=== PATIENT | female | born 1980 | race American Indian/Alaskan Native ===

== ENCOUNTER 2020-03-27 09:29 | Outpatient (CLI) | payer BC ==
--- NOTE | 2020-03-27 10:16 | Mammography Report ---
DIGITAL SCREENING MAMMOGRAM WITH CAD, 03/27/2020 CLINICAL INFORMATION / INDICATION: Routine screening mammography. SCREENING MAMMOGRAM TECHNIQUE: Digital bilateral 2D mammography was obtained in the craniocaudal and mediolateral obliqu e projections. This examination was interpreted with the benefit of Computer-Aided Detection analysis . COMPARISON: 03/23/2019 FINDINGS: Breast Density: The breasts are almost entirely fatty. No dominant mass, suspicious calcifications, or architectural distortion in either breast. Benign-appearing calcifications are present within both breasts. IMPRESSION: No mammographic evidence of malignancy. Follow up recommendation: Routine yearly BI-RADS Category 2: Benign. A "normal" or negative report should not discourage follow up or biopsy of a clinically significant f inding. A written summary of these findings will be mailed to the patient. The patient will be entered into a mammography reporting system which will generate a reminder letter for the patient's next appointmen t at the appropriate interval. The [employer] recommends yearly mammograms starting at age 40 and continuing as l eligio as a woman is in good health. Breast MRI is recommended for women with an approximate 20-25% or greater lifetime risk of breast cancer, including women with a strong family history of breast or ova stefan cancer or who have been treated for Hodgkin's disease. Signer Name: Merirll Vargas MD Signed: 03/27/2020 10:12 AM Workstation Name: [employer]
== END 2020-03-27 09:30 | disposition home or self-care (01) ==
LOC: SPVWC 09:29
PROVIDERS: ATTEND Obstetrics & Gynecology
DX: Z12.31 Encounter for screening mammogram for malignant neoplasm of breast (principal)
CPT/HCPCS: 77067

== ENCOUNTER 2020-06-10 08:23 | Day surgery (SDC) | payer BC ==
[2020-06-05 14:06] LABS: Hematocrit 33.9 % (30.3-42.9); Hemoglobin 10.9 gm/dl (10.1-14.3); Mean Corpuscular HGB Conc 32 % (30-34); Mean Corpuscular Volume 77 fl (79-97); Platelet Count 310 K/mm3 (140-440); Red Blood Count 4.41 M/mm3 (3.65-5.03); Red Cell Distribution Width 16.2 % (13.2-15.2)
--- NOTE | 2020-06-09 15:47 | History and Physical Report ---
History of Present Illness Date of examination: 06/05/20 Chief complaint: Menorrhagia and fibroids History of present illness: Patient presents for preop for hysteroscopy D&C to evaluate menorrhagia, she again declined in-office EMB d/t pain. Menstrual History: LMP (date): 05/08/2020 LMP - Character: normal LMP - Reliable: definite Menarche: 10 Menses interval: 28 days Menstrual flow: 4-7 days On BCP's at conception: none Date of positive (+) home preg. test: 06/11/2013 Current Method of Contraception: None Past History : 3 Term Births: 2 Premature Births: 0 Living Children: 2 Para: 2 Mult. Births: 0 Prev : 2 Aborta: 1 Elect. Ab: 0 Spont. 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 of genital herpes: no Partner hx. of genital herpes: no Hx of STD: None Active Medications: BLACK ELDERBERRY(LOW-FLOWER) CAPSULE (BLACK ELDERBERRY(LOW-FLOWER) CAPS) IBUPROFEN 800 MG ORAL TABLET (IBUPROFEN) 1 po q6 hr prn pain ALBUTEROL SULFATE (2.5 MG/3ML) 0.083% INHALATION NEBULIZATION SOLUTION (ALBUTEROL SULFATE) Current Allergies: PCN (Critical) ASPIRIN (Critical) * SHELLFISH (Critical) Past Medical History: Reviewed history from 03/12/2019 and no changes required: Asthma Pelvic adhesive disease Endometriosis h/o carpal tunnel (B) with ADHD Past Surgical History: Reviewed history from 02/21/2017 and no changes required: positive; LSC- ovarian drilling uterine polyp removal breast reduction x 2 Tubal Ligation Family History Summary: Reviewed history Last on 03/10/2020 and no changes required:06/09/2020 Mother - Has Family History of Diabetes - mother, mat aunts, father all t2dm - Entered On: 10/06/2017 Other Family Member - Has No Family History of Uterine Cancer - Entered On: 03/06/2017 Other Family Member - Has No Family History of Small Bowel Cancer - Entered On: 03/06/2017 Other Family Member - Has No Family History of Stomach Cancer - Entered On: 03/06/2017 Other Family Member - Has No Family History of Pancreatic Cancer - Entered On: 03/06/2017 Other Family Member - Has No Family History of Ovarvian Cancer - Entered On: 03/06/2017 Other Family Member - Has No Family History of Kidney/Urinary Tract Cancer - Entered On: 03/06/2017 Other Family Member - Has No Family History of DVT/PE on OCP - Entered On: 03/06/2017 Other Family Member - Has No Family History of Colon Cancer - Entered On: 03/06/2017 Other Family Member - Has No Family History of Brain Cancer - Entered On: 03/06/2017 Other Family Member - Has No Family History of Breast Cancer - Entered On: 03/06/2017 Other Family Member - Has No Family History of Biliary Tract Cancer - Entered On: 03/06/2017 General Comments - FH: No Family History of Breast Cancer No Family History of Colon Cancer No Family History of Ovarvian Cancer No Family History of DVT/PE on OCP Family History of Diabetes Family History of Hypertension Social History: Reviewed history from 03/12/2019 and no changes required: Patient is no etoh, no illicit drug use, no tobacco use Patient is single Risk Factors: Smoked Tobacco Use: Never smoker Smokeless Tobacco Use: Never Passive smoke exposure: no Drug use: no HIV high-risk behavior: no Alcohol use: yes Exercise: yes Times per week: 3 Type of Exercise: walking Seatbelt use: 100 % Previous Tobacco Use: Signed On 03/10/2020 Smoked Tobacco Use: Never smoker Smokeless Tobacco Use: Never Counseled to quit/cut down: yes Passive smoke exposure: no Drug use: no HIV high-risk behavior: no Caffeine use: 0 drinks per day Previous Alcohol Use: Signed On 03/10/2020 Alcohol use: yes Type: occ Drinks per day: social Exercise: yes Times per week: 3 Type of Exercise: 3 Seatbelt use: 100 % Sun Exposure: occasionally Dietary Counseling: pn yes Mammogram History: Date of Last Mammogram: 03/23/2019 PAP Smear History: Date of Last PAP Smear: 03/12/2019 Review of Systems General Denies fever, chills, sweats, anorexia, fatigue, weakness, malaise, weight loss and sleep disorder. Complains of menorrhagia. Denies vaginal discharge, incontinence, dysuria, hematuria, urinary frequency, amenorrhea, abnormal vaginal bleeding, pelvic pain, genital sores, decreased libido, painful periods, painful sex, urinary urgency, hot flashes, vaginal dryness, vaginal itching and vaginal odor. CV Denies chest pains, palpitations, syncope, dyspnea on exertion, orthopnea, PND and peripheral edema. Resp Denies cough, dyspnea at rest, excessive sputum, hemoptysis, wheezing and pleurisy. GI Denies nausea, vomiting, diarrhea, constipation, change in bowel habits, abdominal pain, melena, hematochezia, jaundice, gas/bloating, indigestion/heartburn, dysphagia and odynophagia. Endo Denies cold intolerance, heat intolerance, polydipsia, polyphagia, polyuria and unusual weight change. Breast Denies left breast lump, right breast lump, nipple discharge, bloody discharge from nipple, breast pain, abnormal mammogram and breast enlargement. MS Denies back pain, joint pain, joint swelling, muscle cramps, muscle weakness, stiffness, arthritis, sciatica, restless legs, leg pain at night and leg pain with exertion. Derm Denies rash, itching, dryness and suspicious lesions. Neuro Denies paralysis, paresthesias, headache, seizures, tremors, vertigo, transient blindness, frequent falls, frequent headaches and difficulty walking. Psych Denies depression, anxiety, irritability and mood swings. Eyes Denies blurring, diplopia, irritation, discharge, vision loss, eye pain and photophobia. ENT Denies earache, ear discharge, tinnitus, decreased hearing, nasal congestion, nosebleeds, sore throat and hoarseness. Allergy Denies urticaria, allergic rash, hay fever and recurrent infections. Heme Denies abnormal bruising, bleeding and enlarged lymph nodes. Physical Exam Appearance: well developed, well nourished, no acute distress Other Exams Lungs: no rales, rhonchi, or wheezes Heart: S1, S2, no murmur, rub, or gallop Genitourinary Exam Uterus: deferred for EUA Impression & Recommendations: Problem # 1: Menorrhagia (ICD-626.2) (GUH70-J52.0) Consent reviewed and signed . Possible laparoscopy or laparotomy explained to genaro langford. The risks and alternatives for this surgery were reviewed with the patient. She was informed of possible bleeding, infection, injury to bowel, bladder, ureters or other adjacent organs. The patient was instructed/informed the following: The normal length of hospital stay for this procedure. Nothing to eat or drink after midnight the evening prior to surgery. Pre-op instruction sheets given. Infection precautions reviewed, patient to call for any signs or symptoms of infection. The usual discomforts associated with this procedure were detailed. Proper use of pain medicines was reviewed. Patient was given ample opportunity to have all her questions answered before signing informed consent. Problem # 2: FIBROIDS, UTERUS (ICD-218.9) ([id number]) Medications and Allergies Allergies Allergy/AdvReac Type Severity Reaction Status Date / Time aspirin Allergy N&V Verified 06/04/20 09:07 Penicillins Allergy N&V Verified 06/04/20 09:07 shellfish derived Allergy Hives Verified 06/04/20 09:07 Home Medications Medication Instructions Recorded Confirmed Last Taken Type Albuterol Sulfate [Proventil Hfa] 2 puff IH Q4H PRN 06/04/20 06/04/20 Unknown History Ibuprofen [Motrin] 400 mg PO Q8H PRN 06/04/20 06/04/20 Unknown History Phentermine HCl 37.5 mg PO DAILY 06/04/20 06/04/20 06/03/20 History diphenhydrAMINE [Benadryl CAP] 25 mg PO Q8HR PRN 06/04/20 06/04/20 Unknown History Active Meds: Active Medications Albuterol (Albuterol 8.5 Gm Mdi Inhalation) 2 puff IH Q4H PRN PRN Reason: Dyspnea Lactated Ringer's (Lactated Ringers) 1,000 mls @ 100 mls/hr IV DIRECT MEME Stop: 06/10/20 23:59 Midazolam HCl (Midazolam 2 Mg/2 Ml Inj) 2 mg IV PREOP NR Stop: 06/10/20 23:00 Exam Vital Signs Temp Pulse Resp BP Pulse Ox 98.6 F 76 20 122/75 99 06/05/20 12:10 06/05/20 12:10 06/05/20 12:10 06/05/20 12:10 06/05/20 12:10 Results - Labs 06/05/20 12:25 Assessment and Plan - Patient Problems (1) Menorrhagia Status: Acute Plan to address problem: Patient is aware this procedure most likely will not treat menorrhagia (2) Fibroid Status: Chronic (3) Asthma Status: Chronic (4) Endometriosis Status: Chronic (5) Pelvic adhesive disease Status: Chronic (6) ADHD Status: Chronic
[~2020-06-10 08:23] MED LIST: ALBUTEROL 8.5 GM MDI INHALATION IH PRN; LACTATED RINGERS 1,000 ML IV SCH; MIDAZOLAM 2 MG/2 ML INJ IV NR
--- NOTE | 2020-06-10 09:14 | Anesthesia Consultation ---
Anesthesia Consult and Med Hx Date of service: 06/10/20 - Airway Anesthetic Teeth Evaluation: Good ROM Head & Neck: Adequate Mental/Hyoid Distance: Adequate Mallampati Class: Class II Intubation Access Assessment: Probably Good - Pulmonary Exam CTA: Yes - Cardiac Exam Cardiac Exam: RRR - Pre-Operative Health Status ASA Pre-Surgery Classification: ASA2 Proposed Anesthetic Plan: General - Pulmonary Hx Smoking: No Hx Asthma: Yes (last inhaler use 3 days ago) Hx Respiratory Symptoms: No (COVID+ 02/2020; symptoms resolved) - Cardiovascular System Hx Hypertension: No - Central Nervous System CVA: No - Endocrine Hx Renal Disease: No Hx Liver Disease: No Hx Insulin Dependent Diabetes: No Hx Non-Insulin Dependent Diabetes: No Hx Thyroid Disease: No - Other Systems Hx Obesity: Yes (BMI 39) - Additional Comments Anesthesia Medical History Comments: No hx anesthetic complications.
[2020-06-10] MEDS ORDERED: fentaNYL 100 MCG/2 ML INJ IV PRN (09:15)
[2020-06-10] MEDS ORDERED: ONDANSETRON 4 MG/2 ML INJ IV PRN (09:15)
[2020-06-10] MEDS ORDERED: HYDROcodone/ACETAMINOPHEN 5-325 MG TAB PO PRN (09:15)
--- NOTE | 2020-06-10 09:15 | Anesthesia Day of Surgery ---
Anesthesia Day of Surgery - Day of Surgery Patient Examined: Yes Patient H&P Reviewed: Yes Patient is NPO: Yes
[2020-06-10] MEDS ORDERED: ACETAMINOPHEN 500 MG TAB PO SCH (09:16)
[2020-06-10] MEDS ORDERED: propofoL 200 MG/20 ML VIAL IV ONE (11:11)
[2020-06-10] MEDS ORDERED: ePHEDrine SULFATE 50 MG/1 ML INJ ONE (11:11)
[2020-06-10] MEDS ORDERED: ONDANSETRON 4 MG/2 ML INJ ONE (11:11)
[2020-06-10] MEDS ORDERED: fentaNYL 100 MCG/2 ML INJ ONE (11:11)
[2020-06-10] MEDS ORDERED: LIDOCAINE MPF (2%) 20 MG/1 ML VIAL 5 ML ONE (11:11)
[2020-06-10] MEDS ORDERED: dexAMETHasone 20 MG/5 ML VIAL ONE (11:11)
--- NOTE | 2020-06-10 12:25 | Discharge Summary ---
Providers - Providers Date of discharge: 06/10/20 Attending physician: MIREYA BERRY Hospitalization Condition: Good Procedures: hysteroscoppy D&C Hospital course: Unremarkable Disposition: DC-01 TO HOME OR SELFCARE Final Discharge Diagnosis (Prints w/discharge instructions): Menorrhagia - Discharge Diagnoses (1) Menorrhagia Status: Acute (2) Fibroid Status: Chronic (3) Asthma Status: Chronic (4) Endometriosis Status: Chronic (5) Pelvic adhesive disease Status: Chronic (6) ADHD Status: Chronic Core Measure Documentation - Palliative Care Palliative Care/ Comfort Measures: Not Applicable - Core Measures Any of the following diagnoses?: none Exam - Constitutional Vitals: Temp Pulse Resp BP Pulse Ox 98.4 F 68 22 123/76 99 06/10/20 08:35 06/10/20 08:35 06/10/20 08:35 06/10/20 08:35 06/10/20 08:35 General appearance: Present: no acute distress - Respiratory Respiratory effort: normal - Cardiovascular Rhythm: regular - Extremities Extremities: no ischemia, No edema - Abdominal Female genitourinary: Present: other (no bleeding) - Psychiatric Psychiatric: appropriate mood/affect, intact judgment & insight, memory intact, cooperative - Neurologic Neurologic: CNII-XII intact Plan Activity: other (No sex, no exercise, may drive in 3days) Weight Bearing Status: Full Weight Bearing Diet: regular Special Instructions: no heavy lifting (Greater than 25lbs) Follow up with: CHRISS ASHBY MD [Other] - 7 Days MIREYA BERRY MD [Staff Physician] - (As scheduled) Prescriptions: Ibuprofen [Motrin 800 MG tab] 800 mg PO Q8HR PRN #30 tablet PRN Reason: pain HYDROcodone/APAP 5-325 [[place] 5-325 mg TAB] 2 each PO ONCE PRN #10 tablet PRN Reason: Pain, Moderate (4-6)
--- NOTE | 2020-06-10 12:32 | Post Operative Note ---
Pre-op diagnosis: Menorrhagia, fibroids Post-op diagnosis: same Findings: grossly normal endometrial cavity Procedure: Diagnostic hysteroscopy Anesthesia: GETA Surgeon: MIREYA BERRY Estimated blood loss: minimal Pathology: list (endometrial tissue) Specimen disposition: to lab Condition: stable Disposition: PACU
[2020-06-10 13:51] VITALS: BP 118/85
--- NOTE | 2020-06-10 14:58 | Operative Report ---
Operative Report Operative Report: Date: 06/10/2020 PREOPERATIVE DIAGNOSES: 1. Menorrhagia POSTOPERATIVE DIAGNOSES: 1. Menorrhagia PROCEDURE PERFORMED: 1. Hysteroscopy. 2. Dilation and curettage (D&C) ANESTHESIA: General ESTIMATED BLOOD LOSS: Less than minimal cc. INDICATIONS: This is a 39-year-old [] female that presents menorrhagia. PROCEDURE: The patient was seen in the preoperative suite. Expected procedure and postoperative course discussed with her. She was taken to the operative suite where general anesthesia was performed. She was placed in a dorsal lithotomy position. . A bimanual exam was done, the uterus was found to be fixed and approximately 10 weeks. She was prepped and draped in the normal sterile fashion. Timeout was performed. Her bladder was drained with the red Adam catheter which produced approximately 100 cc of clear yellow urine. The cervix and vagina were grossly normal with no obvious masses or deformities. A bivalve operative speculum was placed in the vagina. The cervix was retracted into the vagina and anterior under the symphysis pubis. The anterior lip of the cervix was grasped with the single-tooth tenaculum. The uterus was sounded to ~10 cm. The cervix was progressively dilated to allow the diagnostic hysteroscope. Under direct visualization, the ostia were within normal limits. The endometrial lining appeared thickened, however, there was no obvious evidence of malignancy. The hysteroscope was removed and a small sharp curette was placed intrauterine very carefully using anterior wall for guidance. Endometrial curettings were obtained. The endometrial sampling was placed on Telfa pad and sent to Pathology for evaluation, permanent. The hysteroscope was introduced again, no evidence of perforation was noted. At this point procedure was ended. The single-tooth tenaculum and speculum were removed. The cervix was found to be hemostatic. Counts were correct. Patient was taken to the PACU stable. Distention fluid: Normal saline Deficit: 100 mL
--- NOTE | 2020-06-10 15:44 | Post Anesthesia Evaluation ---
- Post Anesthesia Evaluation Patient Participated: Yes Airway Patent: Yes Stable Respiratory Function: Yes Nausea/Vomiting: No Temp > 96.8F: Yes Pain Manageable: Yes Adequeate Hydration: Yes Anesthesia Complications: No
== END 2020-06-10 08:24 | disposition home or self-care (01) ==
LOC: OR 08:23
PROVIDERS: ATTEND Obstetrics & Gynecology
DX: N92.0 Excessive and frequent menstruation with regular cycle (principal); F90.9 Attention-deficit hyperactivity disorder, unspecified type; D64.9 Anemia, unspecified; J45.909 Unspecified asthma, uncomplicated; Z20.822 Contact with and (suspected) exposure to COVID-19; E66.9 Obesity, unspecified; F32.9 Major depressive disorder, single episode, unspecified; Z98.890 Other specified postprocedural states; Z88.0 Allergy status to penicillin; Z88.6 Allergy status to analgesic agent; Z91.013 Allergy to seafood; Z79.899 Other long term (current) drug therapy; Z98.51 Tubal ligation status; Z98.891 History of uterine scar from previous surgery; Z72.89 Other problems related to lifestyle; Z83.3 Family history of diabetes mellitus; Z82.49 Family history of ischemic heart disease and other diseases of the circulatory system; Z68.39 Body mass index [BMI] 39.0-39.9, adult
CPT/HCPCS: 36415; 58558; 81025; 85027; 88305; J1100; J2250; J2405; J2704; J3010; J7120; U0003

== ENCOUNTER 2020-09-30 05:45 | Observation (INO) | payer BC ==
[2020-09-24 12:57] LABS: Basophils % (Auto) 0.4 % (0.0-1.8); Eosinophils # (Auto) 0.8 K/mm3 (0.0-0.4); Eosinophils % (Auto) 9.1 % (0.0-4.3); Hemoglobin 10.6 gm/dl (10.1-14.3); Lymphocytes # (Auto) 2.6 K/mm3 (1.2-5.4); Lymphocytes % (Auto) 28.7 % (13.4-35.0); Mean Corpuscular HGB Conc 32 % (30-34); Mean Corpuscular Volume 78 fl (79-97); Monocytes # (Auto) 0.5 K/mm3 (0.0-0.8); Monocytes % (Auto) 5.7 % (0.0-7.3); Platelet Count 272 K/mm3 (140-440); Red Blood Count 4.25 M/mm3 (3.65-5.03); Red Cell Distribution Width 15.5 % (13.2-15.2)
--- NOTE | 2020-09-24 17:26 | Anesthesia Consultation ---
Anesthesia Consult and Med Hx Date of service: 09/30/20 - Airway Anesthetic Teeth Evaluation: Good ROM Head & Neck: Adequate Mental/Hyoid Distance: Adequate Mallampati Class: Class I Intubation Access Assessment: Good - Pre-Operative Health Status ASA Pre-Surgery Classification: ASA3 Proposed Anesthetic Plan: General Nerve Block: TAP - Pulmonary Hx Smoking: No Hx Asthma: Yes (last inhaler use 3 days ago. Allergic and exercise induced) Hx Respiratory Symptoms: No (COVID+ 02/2020; symptoms resolved but residual dyspnea) COPD: No Hx Pneumonia: No Hx Sleep Apnea: No - Cardiovascular System Hx Hypertension: No - Central Nervous System Hx Seizures: No CVA: No Hx Back Pain: Yes (Neck pain) Hx Psychiatric Problems: Yes (PTSD/ADHD/Depression) - Endocrine Hx Renal Disease: No Hx End Stage Renal Disease: No Hx Liver Disease: No Hx Insulin Dependent Diabetes: No Hx Non-Insulin Dependent Diabetes: No Hx Thyroid Disease: No Hx Hypothyroidism: No Hx Hyperthyroidism: No - Hematic Hx Anemia: Yes Hx Sickle Cell Disease: No - Other Systems Hx Alcohol Use: Yes (Occas) Hx Substance Use: No Hx Cancer: No Hx Obesity: Yes (BMI 38)
--- NOTE | 2020-09-28 14:21 | History and Physical Report ---
History of Present Illness Date of examination: 09/24/20 Chief complaint: Menorrhagia and pelvic pain History of present illness: Menstrual History: LMP (date): 08/28/2020 LMP - Character: normal LMP - Reliable: definite Menarche: 10 Menses interval: 28 days Menstrual flow: 4-7 days On BCP's at conception: none Past History : 3 Term Births: 2 Premature Births: 0 Living Children: 2 Para: 2 Mult. Births: 0 Prev : 2 Aborta: 1 Elect. Ab: 0 Spont. 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 of genital herpes: no Partner hx. of genital herpes: no Hx of STD: None Active Medications (reviewed today): ZYRTEC BENADRYL TYLENOL EXTRA STRENGTH prn for pain MULTIVITAMINS ALBUTEROL SULFATE (2.5 MG/3ML) 0.083% INHALATION NEBULIZATION SOLUTION (ALBUTEROL SULFATE) Current Allergies (reviewed today): PCN (Critical) ASPIRIN (Critical) IODINE (Critical) Past Medical History: Reviewed history from 03/12/2019 and no changes required: Asthma Pelvic adhesive disease Endometriosis h/o carpal tunnel (B) with ADHD Past Surgical History: Reviewed history from 06/10/2020 and no changes required: positive; LSC- ovarian drilling uterine polyp removal breast reduction x 2 Tubal Ligation D&C: (06/10/2020) Hysteroscopy: (06/10/2020) Family History Summary: Reviewed history Last on 06/16/2020 and no changes required:09/28/2020 Mother - Has Family History of Diabetes - mother, mat aunts, father all t2dm - Entered On: 10/06/2017 Other Family Member - Has No Family History of Uterine Cancer - Entered On: 03/06/2017 Other Family Member - Has No Family History of Small Bowel Cancer - Entered On: 03/06/2017 Other Family Member - Has No Family History of Stomach Cancer - Entered On: 03/06/2017 Other Family Member - Has No Family History of Pancreatic Cancer - Entered On: 03/06/2017 Other Family Member - Has No Family History of Ovarvian Cancer - Entered On: 03/06/2017 Other Family Member - Has No Family History of Kidney/Urinary Tract Cancer - Entered On: 03/06/2017 Other Family Member - Has No Family History of DVT/PE on OCP - Entered On: 03/06/2017 Other Family Member - Has No Family History of Colon Cancer - Entered On: 03/06/2017 Other Family Member - Has No Family History of Brain Cancer - Entered On: 03/06/2017 Other Family Member - Has No Family History of Breast Cancer - Entered On: 03/06/2017 Other Family Member - Has No Family History of Biliary Tract Cancer - Entered On: 03/06/2017 General Comments - FH: No Family History of Breast Cancer No Family History of Colon Cancer No Family History of Ovarvian Cancer No Family History of DVT/PE on OCP Family History of Diabetes Family History of Hypertension Social History: Reviewed history from 03/12/2019 and no changes required: Patient is no etoh, no illicit drug use, no tobacco use Patient is single Smoking History: Patient has never smoked. Risk Factors: Smoked Tobacco Use: Never smoker Smokeless Tobacco Use: Never Passive Smoke Exposure: no HIV High Risk Behavior: no Exercise: yes Times/wk: 3 Type of Exercise: walking Exercise Counseling: yes Seatbelt Use: 100 % Alcohol Use: yes Type: occ Drinks per day: social Drug Use: no Physical Exam Appearance: well developed, well nourished, no acute distress Other Exams Lungs: no rales, rhonchi, or wheezes Heart: S1, S2, no murmur, rub, or gallop Genitourinary Exam Uterus: deferred for EUA Impression & Recommendations: Problem # 1: Menorrhagia (ICD-626.2) (IEC08-N50.0) Diagnosis explained to patient . Discussed with patient various medical and surgical therapies common for treatment including, but not limited to, uetrine ablation, hysterectomy, hormones and TXA . Discussed risks and benefits of laparotomy, laparoscopy, vaginal and robotic assisted approaches for hysterectomies. Patient desires definitive treatment in the form of robot assisted laparoscopic total hysterectomy. The risks and alternatives for this surgery were reviewed with the patient. She was informed of the risks of the surgery including, but not limited to, pain, infection, bleeding possibly heavy enough to require a blood transfusion with associated risks of infections (hep atitis and HIV) and transfusion reactions, possible damage to bowel, bladder or ureter(s) and surrounding organs. . Patient understands that this surgery will make her sterile. Indications to abort a robotic/laparoscopic procedure and perform an open procedure were explained. She desires ovarian conservation. She was informed she may require surgery later to have her ovaries removed for a benign or malignant condition Patient understands if her ovaries are removed she will become menopausal. P atient advised the small risks of spreading of malignancy if morcellation is required during the surgery patient understands and approves performing if necessary. Questions answered. Consent reviewed and signed The patient was instructed/informed the following: The normal length of hospital stay for this procedure. Nothing to eat or drink after midnight the evening prior to surgery.. Pre-op instruction sheets given. Wound care instructions given. Problem # 2: Pelvic and perineal pain (ICD-789.00) ([id number]) Alternatives for this procedure to alleviate her pain were discussed including, but not limited to, medical, hormonal and surgical therapies. It was extensively explained to her that her pain may persist, recur or change in nature due to the difficulty with determining the exact etiology(ies) of chronic pelvic pain or development of adhesions. She was also informed her pain may persist if endometriosis is present and unable to completely ablated or removed and her maintains her ovaries. She declined other treatment options at this time. Questions were encouraged and answered. Medications and Allergies Allergies Allergy/AdvReac Type Severity Reaction Status Date / Time aspirin Allergy N&V Verified 06/04/20 09:07 Penicillins Allergy N&V Verified 06/04/20 09:07 shellfish derived Allergy Hives Verified 06/04/20 09:07 Home Medications Medication Instructions Recorded Confirmed Last Taken Type Albuterol Sulfate [Proventil Hfa] 2 puff IH PRN PRN 06/04/20 06/10/20 2 Weeks Ago History ~05/27/20 diphenhydrAMINE [Benadryl CAP] 25 mg PO DAILY PRN 06/04/20 06/10/20 06/09/20 History HYDROcodone/APAP 5-325 [[place] 2 each PO ONCE PRN #10 tablet 06/10/20 Unknown Rx 5-325 mg TAB] Adult Multivitamin Gummies 1 dose PO DAILY 09/19/20 09/19/20 Unknown History Airborne Elderberry Gummy 1 dose PO DAILY 09/19/20 09/19/20 Unknown History Celecoxib 200 mg PO BID 09/19/20 09/19/20 Unknown History Cetirizine HCl [Zyrtec 10mg tab] 10 mg PO DAILY 09/19/20 09/19/20 Unknown History Ibuprofen [Motrin 800 MG tab] 800 mg PO PRN PRN 09/19/20 Unknown History Active Meds: Active Medications Acetaminophen (Acetaminophen 500 Mg Tab) 1,000 mg PO ONCE NR Stop: 09/30/20 20:00 Celecoxib (Celecoxib 200 Mg Cap) 400 mg PO PREOP NR Stop: 09/30/20 20:00 Fentanyl (Fentanyl 100 Mcg/2 Ml Inj) 100 mcg IV ONCE NR Stop: 09/30/20 20:00 Lactated Ringer's (Lactated Ringers) 1,000 mls @ 125 mls/hr IV DIRECT MEME Magnesium Oxide (Magnesium Oxide 400 Mg Tab) 400 mg PO ONCE NR Stop: 09/30/20 20:00 Midazolam HCl (Midazolam 2 Mg/2 Ml Inj) 2 mg IV PREOP NR Stop: 09/30/20 23:59 Exam Vital Signs Temp Pulse Resp BP Pulse Ox 98.2 F 74 20 126/72 100 09/24/20 12:00 09/24/20 12:00 09/24/20 12:00 09/24/20 12:00 09/24/20 12:00 Results - Labs 09/24/20 11:57 Assessment and Plan - Patient Problems (1) Pelvic pain Status: Acute (2) Menorrhagia Status: Acute (3) ADHD Status: Chronic (4) Asthma Status: Chronic (5) Endometriosis Status: Chronic (6) Pelvic adhesive disease Status: Chronic
[2020-09-30] MEDS ORDERED: MIDAZOLAM 2 MG/2 ML INJ IV NR (06:00)
[2020-09-30] MEDS ORDERED: fentaNYL 100 MCG/2 ML INJ IV NR (06:00)
[2020-09-30] MEDS ORDERED: ACETAMINOPHEN 500 MG TAB PO NR (06:00)
[2020-09-30] MEDS ORDERED: SCOPOLAMINE TRANSDERMAL PATCH 72 HR TD NR (06:00)
[2020-09-30] MEDS ORDERED: LACTATED RINGERS 1,000 ML IV SCH (06:00)
[2020-09-30] MEDS ORDERED: GENTAMICIN 340 MG in SODIUM CHLORIDE 0.9% 100 ML IV ONE (06:00)
[2020-09-30] MEDS ORDERED: MAGNESIUM OXIDE 400 MG TAB PO NR (06:00)
[2020-09-30] MEDS ORDERED: CELECOXIB 200 MG CAP PO NR (06:00)
--- NOTE | 2020-09-30 06:34 | Anesthesia Day of Surgery ---
Anesthesia Day of Surgery - Day of Surgery Patient Examined: Yes Patient H&P Reviewed: Yes Patient is NPO: Yes
[2020-09-30] MEDS ORDERED: BUPIVACAINE/PF (0.5%) 5 MG/1 ML 30 ML VIAL INFILTRATI ONE (06:39)
[2020-09-30] MEDS ORDERED: dexAMETHasone 4 MG/ML VIAL ONE (06:39)
[2020-09-30] MEDS ORDERED: SODIUM CHLORIDE 0.9% 500 ML 500 ML ONE (06:41)
[2020-09-30] MEDS ORDERED: dexAMETHasone 20 MG/5 ML VIAL ONE (07:05)
[2020-09-30] MEDS ORDERED: ONDANSETRON 4 MG/2 ML INJ ONE (07:05)
[2020-09-30] MEDS ORDERED: HYDROmorphone 1 MG/1 ML INJ ONE (07:05)
[2020-09-30] MEDS ORDERED: LIDOCAINE MPF (2%) 20 MG/1 ML VIAL 5 ML ONE (07:05)
[2020-09-30] MEDS ORDERED: ROCURONIUM 50 MG/5 ML INJ IV ONE (07:05)
[2020-09-30] MEDS ORDERED: fentaNYL 100 MCG/2 ML INJ ONE (07:05)
[2020-09-30] MEDS ORDERED: ePHEDrine SULFATE 50 MG/1 ML INJ ONE (07:06)
[2020-09-30] MEDS ORDERED: propofoL 200 MG/20 ML VIAL IV ONE (07:06)
[2020-09-30] MEDS ORDERED: ONDANSETRON 4 MG/2 ML INJ IV PRN ×2 (07:16→13:32)
[2020-09-30] MEDS ORDERED: HYDROmorphone 1 MG/1 ML INJ IV PRN (07:16)
[2020-09-30] MEDS ORDERED: NEOMY 40 MG/POLYMYXIN B 200,000 UNITS/ML (GU) AMPULE IR ONE ×2 (07:17→08:08)
[2020-09-30] MEDS ORDERED: SODIUM CHLORIDE 0.9% IRRIG SOLN 2000 ML IR ONE (08:10)
[2020-09-30] MEDS ORDERED: METHYLENE BLUE 50 MG/10 ML AMP ONE (09:19)
[2020-09-30] MEDS ORDERED: METHYLENE BLUE 50 MG/10 ML AMP IRRIGATION ONE (10:09)
--- NOTE | 2020-09-30 12:14 | Post Operative Note ---
Pre-op diagnosis: Menorrhagia, pelvic pain Post-op diagnosis: other (Extensive, severe, firm and thick anterior adhesions involving the bladder and the lower uterine segment and cervix. Also adhesions of both fallopian tubes to the anterior pelvic sidewalls.) Procedure: Robotic assisted laparoscopic supracervical hysterectomy with bilateral salpingectomy Anesthesia: DHRUV Surgeon: MIREYA BERRY (Yahir Cunningham) Estimated blood loss: 50-100ml Pathology: list (Uterus, internal cervical os, bilateral fallopian tubes) Specimen disposition: to lab Condition: stable Disposition: PACU
--- NOTE | 2020-09-30 13:16 | Operative Report ---
Operative Report Operative Report: Date: 09/30/2020 Preoperative diagnosis: 1. Menorrhagia 2. Uterine fibroid 3. Body mass index of 38 kg/m 4. Pelvic pain Postoperative diagnosis: 1. Menorrhagia 2. Uterine fibroid 3. Body mass index of 38 kg/m 4. Pelvic pain 5. Pelvic adhesion Procedure: 1. Robotic-assisted laparoscopic supracervical hysterectomy with bilateral salpingectomy 2. Lysis of adhesions Surgeon: Leidy Leal MD Dog License Officer Supervisor: Yahir Cunningham Anesthesiologist: Dr. Frieda Trevino Anesthesia: General endotracheal anesthesia EBL: Approximately 100 mL Urine output: 180 mL Findings: EUA: Uterus unable to be palpated due to body habitus. Uterus was sounded to 8 cm. Grossly normal tubes and ovaries. Extensive pelvic adhesions as follows: The right fallopian tube was adhered to the right anterior lateral pelvic sidewall the left fallopian tube was adhered to the left ovary and round ligament, bowel epiploica was attached to the posterior left utero- ovarian ligament, extensive thick and firm adhesions of the bladder to the lower uterine segment and cervix were encountered. It was these anterior adhesions and concern for injury to the bladder that would increase this patient's morbidity as well as lack of urology staff available should injury occur that aid in the decision to perform supracervical hysterectomy. Due to patient's body habitus concern with a small uterus adhesions in the depth of operating through an open abdominal incision the decision was made to continue with a laparoscopic approach for better visualization. Procedure: Patient was taken to the OR and placed in the supine position. General anesthesia was induced and an oral gastric tube was placed. Her neck and head were placed on foam support. Foam eye protection with goggles were secured in place. Then foam face protection was placed and secured. Foam shoulder pads were then positioned on her shoulders for Trendelenburg positioning. She was then placed in dorsolithotomy position. Exam under anesthesia as above. The abdomen and vagina were then prepped and draped in the usual sterile fashion. Timeout was performed. A Aquino catheter was inserted into the bladder with drainage of clear yellow urine. The operative speculum was introduced into the vagina, cervix was retracted into the anterior left of the vagina with narrowing of the apex of the vagina. With much manipulation the cervix was able to be visualized and the anterior lip was grasped with a single- tooth tenaculum. Os was dilated and the uterus was sounded to 8 cm. The cervix was progressively dilated to allow the medium V care uterine manipulator. The bulb of the manipulator was inflated and the speculum and tenaculum were removed. The cup of the manipulator was placed around the cervix and the blue occluder of the manipulator was properly positioned in the vagina and secured. A laparotomy sponge that was saturated with a solution of polymyxin and saline was placed in the vagina to ensure pneumoperitoneum. Sterile gloves were placed and attention was turned to the abdomen. A 10 mm midline vertical supraumbilical incision was made approximately 10 cm superior to the elevated fundus of the uterus. A 10-12 mm trocar with the laparoscope and camera attached was introduced through this incision under direct visualization. The abdomen was insufflated. No obvious bowel, bladder, ureteral, or major vascular injury was noted. The patient was then placed in steep Trendelenburg position and the following trochars were placed under direct visualization: 8 mm robotic trochars were placed through incisions made in the bilateral midclavicular lower abdominal region approximately 10 cm lateral to the midline incision, and a 5 mm trocar was placed through an incision made in the right lower lateral pelvis. The 10 mm laparoscope was then replaced by a 5 mm laparoscope that was placed through the 5 millimeter lateral trocar. The 12 mm trocar was then removed and the Osvaldo Pandey fascial closure device was placed through the incision and a 0 Vicryl was placed through the fascia. Once the suture was secured the 12 mm trocar was reintroduced. Once the trochars were in the appropriate positions, the da Hiro robot system was engaged. The EndoShears and bipolar device was placed through the 8 mm trochars and positioned then attention was turned to the console. The uterus was elevated, the epiploica was released from the posterior aspect of the utero-ovarian ligament on the left, and both tubes were released from adhesions to restore normal anatomy then bilateral salpingectomy was performed in the usual fashion. Each tube was removed through the 5 mm trocar and sent to pathology in separate containers. Then the utero-ovarian ligaments were clamped. cauterized and incised bilaterally using 30 W of energy. Then the round ligaments were clamped, cauterized and incised bilaterally. At this point the anterior adhesions were lysed and an attempt was made to identify the vesicouterine fold. Approximately 270 mL of dilute methylene blue was placed in the bladder to assist with outlining the bladder. Both ureters were noted to be peristaltic and away from the operative field. With the bladder outlined additional attempts were made to identify the avascular space between the lower uterine segment and cervix and the bladder however with both sharp and blunt dissections thick firm adhesions were encountered. The posterior leaf of the broad ligament was dissected away from the uterine vessels. The cup of the uterine manipulator was palpated both posteriorly. Even with gentle palpation with conventional laparoscopic instruments the anterior lip of the uterine manipulator could not be palpated. With careful meticulous dissection and the uterus elevated the uterine vessels were able to be clamped, cauterized, and incised bilaterally. Even with this maneuver the vesicouterine fold avascular space could not be comfortably identified without injury to the bladder. Blanching of the uterus was then noted. Attention was again turned to the anterior were no obvious injury to bladder was noted. Then attention was turned again to the posterior where the cup of the manipulator was palpated, however the cervix appeared to be long with another possible 5 cm bilaterally of the cardinal ligament noted. At this point the decision was made to proceed with supracervical hysterectomy. Once blanching of the uterus was again confirmed the uterus was amputated at the internal os. The uterine manipulator was removed from the vagina. No obvious evidence of bowel, bladder, ureteral, or major vascular injury was noted. The uterus was placed in the posterior cul-de-sac, the remaining portion of the cervix was carefully cauterized circumferentially with the bipolar device. The cervix was closed using 180 V-Loc running lock manner. The pelvis was then irrigated with warm normal saline. Hemostasis was noted. Rosas was applied for hemostasis. Then the instruments were removed, the robot was disengaged. The 5 mm laparosco pe was then placed through the right lateral trocar and the Endo Catch bag was then introduced through the 10/12 midline trocar. The uterus was placed in the Endo Catch bag, the 10/12 mm trocar was removed. The uterus and the Endo Catch bag was then elevated through the supraumbilical 10 mm incision. The incision was extended superiorly and inferiorly, the bag was then opened and manual morcellation was performed in order to remove the intact bag with uterus and internal cervix through the midline incision. Once hemostasis was noted, the fascia of the midline incision was closed using 0 Vicryl in a simple running stitch. The subcuticular adipose tissue was reapproximated using 0 Vicryl in interrupted suture. The patient was taken out of Trendelenburg position, the abdomen was desufflated, the remaining trochars were removed. Incisions were closed using 4-0 Monocryl in a subcuticular manner. Surgiseal was placed over the other incisions. The vagina was then inspected, no bleeding was noted. Light green urine was draining into the Aquino bag at the end of the procedure. Counts were correct 3. Patient was taken to recovery room in stable condition.
[2020-09-30] MEDS ORDERED: traMADol 50 MG TAB PO PRN (13:32)
[2020-09-30] MEDS ORDERED: ACETAMINOPHEN 325 MG TAB PO PRN (13:32)
[2020-09-30] MEDS ORDERED: METOCLOPRAMIDE 10 MG/2 ML INJ IV PRN (13:32)
[2020-09-30] MEDS ORDERED: MORPHINE 4 MG/1 ML INJ IV PRN (13:32)
[2020-09-30] MEDS ORDERED: SODIUM CHLORIDE 0.9% 1000 ML 1,000 ML IV SCH (14:32)
[2020-09-30] MEDS: MORPHINE 2 MG/1 ML INJ IV PRN ×2 (15:02→20:55)
[2020-09-30] MEDS: CLINDAMYCIN 600 MG/50 mL 600 MG/50 ML BAG IV SCH ×2 (15:35→23:21)
[2020-09-30] MEDS: IBUPROFEN 800 MG TAB PO PRN (16:22)
[2020-09-30] MEDS: GENTAMICIN/NS 80 MG/100 ML 100 ML IV SCH (16:23)
[2020-09-30] MEDS: FAMOTIDINE 20 MG/2 ML INJ IV SCH (21:06)
[2020-10-01] MEDS: GENTAMICIN/NS 80 MG/100 ML 100 ML IV SCH (00:06)
[2020-10-01] MEDS: oxyCODONE /ACETAMINOPHEN 5-325MG TAB PO PRN ×2 (01:18→08:00)
--- NOTE | 2020-10-01 09:55 | Discharge Summary ---
Providers - Providers Date of Admission: 09/30/20 12:23 Date of discharge: 10/01/20 Attending physician: MIREYA BERRY Hospitalization Condition: Good Procedures: RALSH with BS Hospital course: Unremarkable Disposition: DC-01 TO HOME OR SELFCARE Final Discharge Diagnosis (Prints w/discharge instructions): RALSH w/ BS, JEAN - Discharge Diagnoses (1) Pelvic pain Status: Chronic (2) Menorrhagia Status: Chronic (3) ADHD Status: Chronic (4) Asthma Status: Chronic (5) Endometriosis Status: Chronic (6) Pelvic adhesive disease Status: Chronic Core Measure Documentation - Palliative Care Palliative Care/ Comfort Measures: Not Applicable - Core Measures Any of the following diagnoses?: none Exam - Constitutional Vitals: Temp Pulse Resp BP Pulse Ox 98.2 F 74 18 101/53 99 10/01/20 07:40 10/01/20 07:40 10/01/20 07:40 10/01/20 07:40 10/01/20 07:40 General appearance: Present: no acute distress - Neck Neck: Present: supple - Respiratory Respiratory effort: normal Respiratory: bilateral: CTA - Cardiovascular Rhythm: regular - Extremities Extremities: no ischemia, No edema (NT) - Abdominal General gastrointestinal: Present: soft, non-distended, normal bowel sounds Female genitourinary: Present: deferred - Integumentary Integumentary: Present: clear, warm, dry (Incisions: C/D/I) - Psychiatric Psychiatric: appropriate mood/affect, intact judgment & insight, memory intact, cooperative - Neurologic Neurologic: CNII-XII intact Plan Activity: other (No driving, no sex. Ambulate ~1mile on your property a day. Use your Incentive spirometer every hour while awake) Weight Bearing Status: Weight Bear as Tolerated Diet: regular (Eat smal meals frequently. Avoid high salt, high fat and spicy meals, drink ~95oz water a day. ) Wound: open to air, keep clean and dry Special Instructions: no heavy lifting (Greater than 15lbs) Follow up with: MAGED ASHBY [Other] - 3 Days (FOLLOW UP WITH DR. LEONARD REIMBURSEMENT REP AND DR. MILLS GI DOCTOR) MIREYA BERRY MD [Staff Physician] - (As scheduled) Prescriptions: Ibuprofen [Motrin 800 MG tab] 800 mg PO Q8H PRN 1 Days #30 tablet PRN Reason: Pain, Moderate (4-6) oxyCODONE /ACETAMINOPHEN [Percocet 5/325 mg] 1 - 2 tab PO Q6H PRN #14 tablet PRN Reason: Pain, Moderate (4-6)
[2020-10-01 10:05] LABS: Hematocrit 29.4 % (30.3-42.9); Hemoglobin 9.5 gm/dl (10.1-14.3)
[2020-10-01] MEDS: FAMOTIDINE 20 MG/2 ML INJ IV SCH (10:20)
[2020-10-01] MEDS: IBUPROFEN 800 MG TAB PO PRN (11:51)
[2020-10-01 13:05] VITALS: BP 104/60
== END 2020-10-01 13:44 | disposition home or self-care (01) ==
LOC: OR 05:45 → OB 12:23
PROVIDERS: ADMIT Obstetrics & Gynecology; ATTEND Obstetrics & Gynecology
DX: N92.0 Excessive and frequent menstruation with regular cycle (principal); Z20.822 Contact with and (suspected) exposure to COVID-19; R10.2 Pelvic and perineal pain; N73.6 Female pelvic peritoneal adhesions (postinfective); F90.9 Attention-deficit hyperactivity disorder, unspecified type; J45.909 Unspecified asthma, uncomplicated; N80.9 Endometriosis, unspecified; Z90.711 Acquired absence of uterus with remaining cervical stump; Z90.79 Acquired absence of other genital organ(s); Z98.891 History of uterine scar from previous surgery
CPT/HCPCS: 36415; 58542; 64450; 81025; 82565; 85014; 85018; 85025; 86850; 86900; 86901; 88302; 88307; 96365; 96366; 96367; 96375; 96376; A4217; G0378; J1100; J1170; J1580; J2250; J2270; J2405; J2704; J3010; J3490; J7040; J7120; Q9968; S2900; U0003

== ENCOUNTER 2021-04-01 10:14 | Outpatient (CLI) | payer BC ==
--- NOTE | 2021-04-01 11:27 | Mammography Report ---
DIGITAL SCREENING MAMMOGRAM WITH CAD, 04/01/2021 CLINICAL INFORMATION / INDICATION: Routine screening mammography. TECHNIQUE: Digital bilateral 2D mammography was obtained in the craniocaudal and mediolateral obliqu e projections. This examination was interpreted with the benefit of Computer-Aided Detection analysis . COMPARISON: 03/27/2020, 03/23/2019 FINDINGS: Breast Density: The breasts are almost entirely fatty. No dominant mass, suspicious calcifications, or architectural distortion in either breast. Postsurgical changes from bilateral breast reduction are again noted. IMPRESSION: No mammographic evidence of malignancy. Follow up recommendation: Routine yearly BI-RADS Category 2: BENIGN. A "normal" or negative report should not discourage follow up or biopsy of a clinically significant f inding. A written summary of these findings will be mailed to the patient. The patient will be entered into a mammography reporting system which will generate a reminder letter for the patient's next appointmen t at the appropriate interval. The [employer] recommends yearly mammograms starting at age 40 and continuing as l eligio as a woman is in good health. Breast MRI is recommended for women with an approximate 20-25% or greater lifetime risk of breast cancer, including women with a strong family history of breast or ova stefan cancer or who have been treated for Hodgkin's disease. Signer Name: Aline Laird MD Signed: 04/01/2021 11:22 AM Workstation Name: [id number]
== END 2021-04-01 10:15 | disposition home or self-care (01) ==
LOC: MAMMO 10:14
PROVIDERS: ATTEND Obstetrics & Gynecology
DX: Z12.31 Encounter for screening mammogram for malignant neoplasm of breast (principal); N64.89 Other specified disorders of breast
CPT/HCPCS: 77067